=== PATIENT | male | born 1945 | race Caucasian/White ===

== ENCOUNTER 2019-08-02 13:12 | Outpatient (CLI) | payer MEDICARE, BC, SELFPAY ==
--- NOTE | ~2019-08-02 | XR_ITS ---
XR ankle RT min 3V DATE: 08/02/2019 13:27 INDICATION: Right ankle and foot injury TECHNIQUE: 4 views COMPARISON: None FINDINGS: There is diffuse soft tissue swelling, greater medially. No fracture or dislocation of the ankle or disruption of the ankle mortise. No periosteal reaction or bone destruction. IMPRESSION: Soft tissue swelling Reviewed, dictated and finalized at location A. IMPRESSION: Soft tissue swelling
--- NOTE | ~2019-08-02 | US_ITS ---
EXAMINATION: US venous doppler LE RT DATE: 08/02/2019 13:45 INDICATION: Right lower limb pain and swelling TECHNIQUE: Grayscale ultrasound images without and with compression and Doppler ultrasound images of the right lower extremity veins were obtained. COMPARISON: None. FINDINGS: The visualized portions of right common femoral vein, profunda (deep) femoral vein, femoral vein, pop liteal vein, peroneal trunk, posterior tibial veins, peroneal veins, gastrocnemius vein and greater s aphenous vein outflow are patent. Subcutaneous edema at the right calf. IMPRESSION: 1. No deep venous thrombosis in the right lower limb. Reviewed, dictated and finalized at location A.
--- NOTE | ~2019-08-02 | XR_ITS ---
XR foot RT min 3V DATE: 08/02/2019 13:27 INDICATION: Fall 8 days ago. Right foot injury, swelling and bruising. TECHNIQUE: 4 views COMPARISON: None FINDINGS: Diffuse osteopenia. There is soft tissue swelling particularly over the dorsum of the forefoot. There is mild osteoarthritis at the first metatarsophalangeal joint. No fracture, dislocation, periosteal reaction or bone destruction is detected. IMPRESSION: No fracture or dislocation detected; soft tissue swelling Reviewed, dictated and finalized at location A.
== END 2019-08-02 13:13 | disposition home or self-care (01) ==
PROVIDERS: PCP Family Medicine; Visit Provider Family Medicine
DX: I82.401 Acute embolism and thrombosis of unspecified deep veins of right lower extremity (principal); S99.929A Unspecified injury of unspecified foot, initial encounter; X58.XXXA Exposure to other specified factors, initial encounter; M79.89 Other specified soft tissue disorders
CPT/HCPCS: 73610; 73630; 93971

== ENCOUNTER 2022-04-17 14:56 | Emergency (ER) | payer MEDICARE, BC, SELFPAY ==
[2022-04-17 14:58] VITALS: BP 137/82; PULSE 105; RESP 18; TEMP 36.6; O2SAT 99
[2022-04-17 15:10] LABS: Basophils Percent Auto 0.2 % (0.2-1.2); Eosinophils Absolute Auto 0.2 K/mm3 (0-0.3); Eosinophils Percent Auto 1.7 % (0-4.4); Hematocrit 46.5 % (42.0-52.0); Hemoglobin 16.2 g/dL (14.0-18.0); Immature Granulocyte Absolute 0.03 K/mm3 (0.00-0.031); Immature Granulocyte Percent A 0.3 % (0-0.5); Lymphocytes Absolute Auto 1.48 K/mm3 (0.9-3.2); Lymphocytes Percent Auto 16.7 % (18.3-44.2); Mean Corpuscular HGB Conc 34.8 g/dl (32-36); Mean Corpuscular Hemoglobin 31.6 pg (26-34); Mean Corpuscular Volume 90.8 fl (80-100); Mean Platelet Volume 8.7 fl (7.4-10.4); Monocytes Absolute Auto 0.7 K/mm3 (0.1-0.6); Neutrophils Absolute Auto 6.5 K/mm3 (1.3-6.7); Neutrophils Percent Auto 73.1 % (45.5-73.1); Platelet Count Result 164 k/mm3 (150-375); Red Blood Count 5.12 M/mm3 (4.6-6.20); Red Cell Distribution Width 11.9 % (11.5-14.5); White Blood Count 8.9 K/mm3 (4.5-10.0)
[2022-04-17 15:22] LABS: Alanine Aminotransferase 34 U/L (6-50); Albumin Level 4.6 g/dL (3.5-5.1); Alkaline Phosphatase 74 U/L (38-126); Anion Gap 6 mmol/L (8-16); Aspartate Amino Transferase 36 U/L (17-59); Bilirubin,Total 1.2 mg/dL (0.2-1.3); Blood Urea Nitrogen 14 mg/dL (9-20); Calcium 9.3 mg/dL (8.4-10.2); Carbon Dioxide 29 mmol/L (22-30); Chloride 98 mmol/L (98-107); Estimated CRCL calculation 70 ml/min; Estimated Glomerular Filt Rate > 60; Glucose 118 mg/dL (65-110); Lipase 64 U/L (23-300); Potassium 3.9 mmol/L (3.4-5.0); Sodium 133 mmol/L (137-145)
[2022-04-17 15:29] LABS: Add Urine Microscopic? YES; Appearance Urine Clear (Clear); Bilirubin Urine Negative (Negative); Blood Urine Negative (Negative); Color Urine Yellow (Yellow); Glucose Urine UA Negative (Negative); Ketones Urine Trace mg/dL (Negative); Leukocyte Esterase Ur Negative LEU/UL (Negative); Nitrate Urine Negative (Negative); Protein Urine Trace mg/dL (Negative); Urobilinogen Urine 0.2 mg/dL (<2.0); pH Urine 5.5 (5.0-9.0)
[2022-04-17 15:39] LABS: Mucus Urine Few /lpf; RBC Urine 0-2 /hpf (0-2); WBC Urine 0-3 /hpf
--- NOTE | 2022-04-17 20:18 | PC.NURSE ---
patient called for repeat vitals at 2014 with no response
--- NOTE | 2022-04-17 21:22 | PC.NURSE ---
called x3 no answer
== END 2022-04-17 22:08 | disposition left against medical advice (07) ==
PROVIDERS: Emergency Provider Emergency Medicine
DX: R19.7 Diarrhea, unspecified (principal)
CPT/HCPCS: 36415; 80053; 81001; 83690; 85025; 99199

== ENCOUNTER 2023-02-20 14:35 | Emergency (ER) | payer MEDICARE, BC, SELFPAY ==
[2023-02-20 14:53] VITALS: BP 163/103; PULSE 89; RESP 18; TEMP 36.7; O2SAT 100
--- NOTE | 2023-02-20 16:31 | PC.NURSE ---
patient to [facility], stated he would follow up with MD in morning. advised to come back if symptoms get worse.
== END 2023-02-20 17:01 | disposition left against medical advice (07) ==
LOC: ANHED 16:37
DX: S29.9XXA Unspecified injury of thorax, initial encounter (principal)
CPT/HCPCS: 99199